=== PATIENT | female | born 1955 | race Caucasian/White ===

== ENCOUNTER → 2020-09-29 | Day surgery (SDC) | payer MEDICARE, OTHER ==
[~2020-09-29] MED LIST: ABILIFY2 MG PO; AMBIEN10 MG PO; ASCORBIC ACID500 MG PO; CELLCEPT500 MG PO; CLARITIN-D 241 EACH PO; COMPAZINE10 MG PO; DICYCLOMINE HCL20 MG PO; FIBER500 MG PO; FISH OIL DR 1,1 EAC1 PO; FLUOXETINE HCL40 MG PO; GLUCOSAMINE-CH1 EA14 PO; LEVOXYL50 MCG PO; LEVOXYL75 MCG PO; MINIPRESS2 MG PO; MYCOPHENOLATE500 MG PO; NORCO 5-325 TA1 EACH PO; OS-CAL500 MG PO; PHENERGAN25 M1 PO; PLAQUENIL200 MG PO; PROBIOTIC1 EAC1 PO; PROTONIX 40MG T40 MG PO; REMERON15 MG PO; VITAMIN E400 UNI1 PO
[2020-09-29 07:43] LABS: HCT 41.5 % (37.0-47.0); HGB 12.7 g/dl (12.5-16.0); MCH 28.2 pg (25.0-31.0); MCHC 30.6 g/dL (32.0-36.0); MCV 92.2 fL (78.0-100.0); MPV 8.9 fL (6.0-9.5); RBC 4.5 M/uL (4.20-5.40); RDW 14.7 % (11.5-14.0); WBC 3.9 K/uL (4.0-10.5)
[2020-09-29 08:03] LABS: BILIRUBIN - TOTAL 0.3 mg/dL (0.2-1.0); BUN/CREAT RATIO (CALC) 21.5 RATIO; CREATININE 0.93 mg/dL (0.51-0.95); GLOBULIN (CALCULATION) 3.1 g/dL; TOTAL PROTEIN 7.1 g/dL (6.4-8.2)
== END | disposition home or self-care (01) ==
LOC: FAS 06:45
PROVIDERS: Surgery
DX: K81.1 Chronic cholecystitis (principal); K83.8 Other specified diseases of biliary tract; K82.8 Other specified diseases of gallbladder; K20.90 Esophagitis, unspecified without bleeding; K58.9 Irritable bowel syndrome, unspecified; E03.9 Hypothyroidism, unspecified; M19.90 Unspecified osteoarthritis, unspecified site; K62.5 Hemorrhage of anus and rectum; M06.9 Rheumatoid arthritis, unspecified; M32.9 Systemic lupus erythematosus, unspecified; I83.811 Varicose veins of right lower extremity with pain; Z90.09 Acquired absence of other part of head and neck; Z78.0 Asymptomatic menopausal state; Z86.73 Personal history of transient ischemic attack (TIA), and cerebral infarction without residual deficits; Z88.0 Allergy status to penicillin; Z88.1 Allergy status to other antibiotic agents; Z98.890 Other specified postprocedural states; Z87.891 Personal history of nicotine dependence; Z20.822 Contact with and (suspected) exposure to COVID-19
CPT/HCPCS: 36415; 80053; C1758; J2250; J2704; J2710; J3010; J7120; Q9967

== ENCOUNTER → 2022-02-05 | Day surgery (SDC) | payer OTHER ==
[~2022-02-05] VITALS: Ht 167.6 cm; Wt 59.0 kg
[~2022-02-05] MED LIST changes: +DULOXETINE HCL60 MG PO; +PANTOPRAZOLE SO20 MG PO; +PRAZOSIN HCL2 MG PO; +ZOLPIDEM TARTRA10 MG PO
[2022-02-05 09:19] LABS: HCT 40.2 % (37.0-47.0); HGB 12.4 g/dl (12.5-16.0); MCH 28.8 pg (25.0-31.0); MCHC 30.8 g/dL (32.0-36.0); MCV 93.3 fL (78.0-100.0); MPV 9.6 fL (6.0-9.5); RBC 4.31 M/uL (4.20-5.40); RDW 14.1 % (11.5-14.0); WBC 5.5 K/uL (4.0-10.5)
[2022-02-05 09:38] LABS: ALBUMIN 3.7 g/dL (3.4-5.0); BILIRUBIN - TOTAL 0.4 mg/dL (0.2-1.0); BUN/CREAT RATIO (CALC) 16.8 RATIO; CREATININE 1.01 mg/dL (0.51-0.95); POTASSIUM 4.9 mmol/L (3.5-5.1); TOTAL PROTEIN 6.7 g/dL (6.4-8.2)
== END | disposition home or self-care (01) ==
LOC: FAS 01-18 10:30
PROVIDERS: Surgery
DX: K31.9 Disease of stomach and duodenum, unspecified (principal); K21.00 Gastro-esophageal reflux disease with esophagitis, without bleeding; K22.89 Other specified disease of esophagus; K29.70 Gastritis, unspecified, without bleeding; K59.00 Constipation, unspecified; Z86.73 Personal history of transient ischemic attack (TIA), and cerebral infarction without residual deficits
CPT/HCPCS: 36415; 80053; J2704; J7120